=== PATIENT | female | born 1945 | race Hispanic/Latino ===

== ENCOUNTER 2017-02-16 06:24 | Day surgery (SDC) | payer OTHER ==
[~2017-02-16] VITALS: Ht 157.5 cm; Wt 54.9 kg
[~2017-02-16 06:24] MED LIST: ALOE VERA PO; ALPR-410 PO; ASPI-555 PO; CA C1TAB95 PO; CHOL100040 PO; FLUO-125 PO; MECL12.585 PO; MULT-1258 PO; SENN-107 PO; SIMV20TA6 PO
[2017-02-16 06:44] VITALS: BP 134/53
[2017-02-16] MEDS ORDERED: SODIUM CHLORIDE 0.9% 1000ML 1,000 ML IV ONE (06:45)
[2017-02-16] MEDS ORDERED: GLYCOPYRROLATE 0.2 MG/ML 5 ML VIAL ONE (07:30)
[2017-02-16] MEDS ORDERED: FENTANYL CITRATE PF 50 MCG/1 ML 2ML VIAL ONE (07:30)
[2017-02-16] MEDS ORDERED: PROPOFOL 10 MG/ML 20ML VIAL IV ONE (07:30)
[2017-02-16 07:52] VITALS: BP 119/53
== END 2017-02-16 08:18 | disposition home or self-care (01) ==
LOC: DAH 06:24 → ENDO 06:24
PROVIDERS: ATTEND Internal Medicine Gastroenterology
DX: Z09 Encounter for follow-up examination after completed treatment for conditions other than malignant neoplasm (principal); K57.30 Diverticulosis of large intestine without perforation or abscess without bleeding; M19.90 Unspecified osteoarthritis, unspecified site; F32.9 Major depressive disorder, single episode, unspecified; Z98.51 Tubal ligation status; Z98.890 Other specified postprocedural states; Z82.49 Family history of ischemic heart disease and other diseases of the circulatory system; Z87.19 Personal history of other diseases of the digestive system; Z80.0 Family history of malignant neoplasm of digestive organs
CPT/HCPCS: A4606; G0105; J2704; J3010; J3490; J7030

== ENCOUNTER → 2018-05-06 | Outpatient (CLI) | payer OTHER | END | disposition home or self-care (01) | LOC: RAH 15:12 | PROVIDERS: ATTEND Family Medicine | DX: Z12.31 Encounter for screening mammogram for malignant neoplasm of breast (principal) | CPT/HCPCS: 77067 ==

== ENCOUNTER → 2018-11-10 | Outpatient (CLI) | payer OTHER | END | disposition home or self-care (01) | LOC: CANPRECLI → RAH 13:35 | PROVIDERS: ATTEND Family Medicine | DX: E04.1 Nontoxic single thyroid nodule (principal) | CPT/HCPCS: 76536 ==

== ENCOUNTER → 2019-03-17 | Outpatient (CLI) | payer OTHER ==
[~2019-03-17] MED LIST changes: -FLUO-125 PO; +FLUO10CA22 PO; +MECL-183 PO; -MECL12.585 PO; +SIMV-43 PO; -SIMV20TA6 PO
== END | disposition home or self-care (01) ==
LOC: RAH 13:48
PROVIDERS: ATTEND Internal Medicine Cardiovascular Disease
DX: Z13.6 Encounter for screening for cardiovascular disorders (principal)
CPT/HCPCS: 75571

== ENCOUNTER → 2019-04-04 | Outpatient (CLI) | payer OTHER | END | disposition home or self-care (01) | LOC: SHCH 08:18 | PROVIDERS: ATTEND Internal Medicine Cardiovascular Disease | DX: R01.1 Cardiac murmur, unspecified (principal) | CPT/HCPCS: 93306; 93356 ==

== ENCOUNTER → 2019-08-09 | Outpatient (CLI) | payer OTHER ==
[~2019-08-09] MED LIST changes: -ASPI-555 PO; +ASPI-556 PO
== END | disposition home or self-care (01) ==
LOC: RAH 14:35
PROVIDERS: ATTEND Family Medicine
DX: Z12.31 Encounter for screening mammogram for malignant neoplasm of breast (principal)
CPT/HCPCS: 77067

== ENCOUNTER → 2019-08-17 | Outpatient (CLI) | payer OTHER | END | disposition home or self-care (01) | LOC: SHCH 15:43 | PROVIDERS: ATTEND Internal Medicine Cardiovascular Disease | DX: I65.23 Occlusion and stenosis of bilateral carotid arteries (principal) | CPT/HCPCS: 93880 ==

== ENCOUNTER → 2020-08-16 | Outpatient (CLI) | payer OTHER ==
[~2020-08-16] MED LIST changes: -FLUO10CA22 PO; +FLUO10CA23 PO; -MECL-183 PO; +MECL-226 PO
== END | disposition home or self-care (01) ==
LOC: RAH 07:52
PROVIDERS: ATTEND Family Medicine
DX: Z12.31 Encounter for screening mammogram for malignant neoplasm of breast (principal); R94.5 Abnormal results of liver function studies
CPT/HCPCS: 77067

== ENCOUNTER → 2020-09-12 | Outpatient (CLI) | payer OTHER | END | disposition home or self-care (01) | LOC: RAH 07:41 | PROVIDERS: ATTEND Internal Medicine Gastroenterology | DX: N28.1 Cyst of kidney, acquired (principal) | CPT/HCPCS: 76700 ==

== ENCOUNTER → 2022-06-10 | Outpatient (CLI) | payer OTHER ==
[~2022-06-10] MED LIST changes: -FLUO10CA23 PO; +FLUO10CA24 PO
== END | disposition home or self-care (01) ==
LOC: RAH 14:30
PROVIDERS: ATTEND Family Medicine
DX: Z12.31 Encounter for screening mammogram for malignant neoplasm of breast (principal)
CPT/HCPCS: 77067

== ENCOUNTER → 2022-09-23 | Outpatient (CLI) | payer OTHER | END | disposition home or self-care (01) | LOC: RAH 07:47 | PROVIDERS: ATTEND Family Medicine | DX: R10.2 Pelvic and perineal pain (principal); R10.9 Unspecified abdominal pain | CPT/HCPCS: 76700; 76856 ==

== ENCOUNTER → 2023-05-25 | Outpatient (CLI) | payer OTHER | END | disposition home or self-care (01) | LOC: SHCH 08:53 | PROVIDERS: ATTEND Internal Medicine Cardiovascular Disease | DX: I65.23 Occlusion and stenosis of bilateral carotid arteries (principal); R09.89 Other specified symptoms and signs involving the circulatory and respiratory systems; R07.9 Chest pain, unspecified; R00.2 Palpitations; R26.89 Other abnormalities of gait and mobility; F41.9 Anxiety disorder, unspecified; E78.5 Hyperlipidemia, unspecified; Z79.899 Other long term (current) drug therapy | CPT/HCPCS: 93880 ==

== ENCOUNTER → 2023-06-14 | Outpatient (CLI) | payer OTHER | END | disposition home or self-care (01) | LOC: RAH 08:53 | PROVIDERS: ATTEND Family Medicine | DX: Z12.31 Encounter for screening mammogram for malignant neoplasm of breast (principal) | CPT/HCPCS: 77067 ==

== ENCOUNTER → 2023-12-07 | Outpatient (CLI) | payer OTHER ==
[~2023-12-07] MED LIST changes: +FLUO-341 PO; -FLUO10CA24 PO
== END | disposition home or self-care (01) ==
LOC: SHCH 08:27
PROVIDERS: ATTEND Internal Medicine Cardiovascular Disease
DX: I50.32 Chronic diastolic (congestive) heart failure (principal); R09.89 Other specified symptoms and signs involving the circulatory and respiratory systems; E78.5 Hyperlipidemia, unspecified
CPT/HCPCS: 93880

== ENCOUNTER → 2024-04-29 | Outpatient (CLI) | payer OTHER ==
--- NOTE | 2024-05-01 15:49 | HMCSR ---
APPROVED REPORT Laterality: Bilateral Indications Dizziness and Vertigo, i65.23 Doppler Spectral Velocity Analysis PSV / EDVPSV / EDV ECA (R) 73 / cm/sECA (L) 62 / cm/s dICA (R) 163 / 44 cm/sdICA (L) 121 / 19 cm/s Marce (R) 91 / 32 cm/smICA (L) 59 / 20 cm/s pICA (R) 51 / 18 cm/spICA (L) 63 / 22 cm/s dCCA (R) 62 / 16 cm/sdCCA (L) 59 / 14 cm/s mCCA (R) 59 / 11 cm/smCCA (L) 59 / 16 cm/s pCCA (R) 66 / 15 cm/spCCA (L) 61 / 14 cm/s Vert (R) 37 / cm/sVert (L) 46 / cm/s Subl. (R) 112 / cm/sSubl. (L) 123 / cm/s ICA/CCA 2.47ICA/CCA 1.98 Technologist Impression Minimal to mild plaque noted in the bilateral carotids. Increased velocities noted in the Right distal ICA. Bilateral vertebral arteries appear antegrade. Conclusion Minimal to mild plaque noted in the bilateral carotids. Increased velocities noted in the Right distal ICA. Bilateral vertebral arteries appear antegrade. Conclusion Minimal to mild plaque noted in the bilateral carotids. Increased velocities noted in the Right distal ICA. Bilateral vertebral arteries appear antegrade.
== END | disposition home or self-care (01) ==
LOC: SHCH 09:20
PROVIDERS: ATTEND Internal Medicine Cardiovascular Disease
DX: I65.23 Occlusion and stenosis of bilateral carotid arteries (principal); R09.89 Other specified symptoms and signs involving the circulatory and respiratory systems
CPT/HCPCS: 93880

== ENCOUNTER → 2024-05-22 | Outpatient (CLI) | payer OTHER ==
[2024-05-22] MEDS: REGADENOSON 0.4 MG/5 ML PF SYG IVP ONE (11:00)
--- NOTE | 2024-05-24 08:05 | HMCSR ---
APPROVED REPORT Height: 5 ft 2in Weight: 127 lbs TEST INDICATIONS CAD The imaging protocol used to acquire images was Rest Tc-99m/stress Tc-99m 1 day Consent: The procedure was explained and understood by the patient. Informerd consent was witnessed Butch Steinberg RN First, low dose rest was performed then high dose stress. RESTING DATA: The resting ekg shows: NSR Rest SPECT myocardial perfusion imaging was performed in supine position 68 minutes following the int ravenous injection of 10.6 mCi of Tc-99 Sestamibi. Time of rest injection: 09:00: Date: 05/22/2024 Time of rest imagin:08: Date: 05/22/2024 PHARMACOLOGIC STRESS: Pharmacologic stress test was performed by injecting regadenoson 0.4 mg IV push followed by the intra venous injection of 31.4 mCi of Tc-99 Sestamibi. Time of stress injection: 10:48: Date: 05/22/2024 Time of stress imagin:09: Date: 05/22/2024 Heart Rate at time of stress injection: 59 bpm. Gated Stress SPECT was performed 81 minutes after stress injection. The images were gated to evaluate regional wall motion and calculate left ventricular ejection fracti on. STRESS DETAILS Reason for Termination: Infusion complete Stress Symptoms: No chest pain or symptoms Max HR Achieved: 101 bpm % of APMHR Achieved: 72 Max Blood Pressure: 140/87 mmHg Stress ECG: NSR LEFT VENTRICLE Size: The left ventricular size is normal. Systolic Function:The left ventricular systolic function is normal. The left ventricular ejection fraction was calculated to be 76%.TID = . LV PERFUSION The rest and stress images show normal perfusion. Conclusion The left ventricular size is normal. The left ventricular systolic function is normal. The rest and stress images show normal perfusion. The left ventricular ejection fraction was calculated to be 76%.
== END | disposition home or self-care (01) ==
LOC: SHCH 08:33
PROVIDERS: ATTEND Internal Medicine Cardiovascular Disease
DX: I25.10 Atherosclerotic heart disease of native coronary artery without angina pectoris (principal)
CPT/HCPCS: 78452; 93017; J2785; A9500 ×2

== ENCOUNTER → 2024-10-04 | Outpatient (CLI) | payer OTHER | END | disposition home or self-care (01) | LOC: RAH 10:37 | PROVIDERS: ATTEND Family Medicine | DX: Z12.31 Encounter for screening mammogram for malignant neoplasm of breast (principal) | CPT/HCPCS: 77063; 77067 ==